=== PATIENT | male | born 1960 | race Caucasian/White ===

== ENCOUNTER → 2016-09-09 | Outpatient (CLI) | payer BC | END | disposition short-term general hospital (02) | LOC: CLCARD 11:06 | DX: R07.9 Chest pain, unspecified (principal); E78.5 Hyperlipidemia, unspecified; M47.899 Other spondylosis, site unspecified; R74.8 Abnormal levels of other serum enzymes ==

== ENCOUNTER → 2016-09-23 | Outpatient (CLI) | payer BC | END | disposition short-term general hospital (02) | LOC: CLCARD 10:25 | DX: E78.5 Hyperlipidemia, unspecified (principal); R07.9 Chest pain, unspecified; R74.8 Abnormal levels of other serum enzymes; M47.819 Spondylosis without myelopathy or radiculopathy, site unspecified ==